=== PATIENT | female | born 1970 | race Caucasian/White ===

== ENCOUNTER 2022-11-07 07:52 | Emergency (ER) | payer SELFPAY ==
[~2022-11-07] VITALS: Ht 160 cm; Wt 68.0 kg
[2022-11-07 08:00] VITALS: BP 136/81; PULSE 117; RESP 20; TEMP 98.2; O2SAT 96
[2022-11-07 08:41] LABS: CLARITY URINE CLEAR (CLEAR); COLOR URINE YELLOW (YELLOW); GLUCOSE URINE NEGATIVE (NEGATIVE); KETONES URINE NEGATIVE (NEGATIVE); LEUKOCYTE ESTERASE URINE 1+ (NEGATIVE); NITRITE URINE NEGATIVE (NEGATIVE); OCCULT BLOOD URINE NEGATIVE (NEGATIVE); PH URINE 5.5 (4.5-8.0); PROTEIN URINE NEGATIVE (NEGATIVE); SPECIFIC GRAVITY URINE 1.013 (1.005-1.030); UROBILINOGEN URINE 0.2 E.U./dL (0.2-1.0)
[2022-11-07 08:57] LABS: SQUAMOUS EPITHELIAL CELL URINE 1+ /lpf (RARE/1+)
[2022-11-07 09:00] LABS: BACTERIA URINE 1+; RBC URINE NONE SEEN /hpf (0-2)
== END 2022-11-07 10:32 | disposition left against medical advice (07) ==
LOC: ER 07:52
DX: Z53.21 Procedure and treatment not carried out due to patient leaving prior to being seen by health care provider (principal)
CPT/HCPCS: 81003; 81025; 99281

== ENCOUNTER 2022-11-28 23:11 | Emergency (ER) | payer SELFPAY ==
[~2022-11-28] VITALS: Ht 160 cm; Wt 55.0 kg
[2022-11-28 23:25] VITALS: BP 106/64; PULSE 118; RESP 16; TEMP 98.2; O2SAT 100
== END 2022-11-29 04:09 | disposition left against medical advice (07) ==
LOC: ER 23:11
DX: Z53.21 Procedure and treatment not carried out due to patient leaving prior to being seen by health care provider (principal)
CPT/HCPCS: 99281